=== PATIENT | female | born 1995 | race Caucasian/White ===

== ENCOUNTER 2019-11-02 23:14 | Emergency (ER) | payer SELFPAY ==
[~2019-11-02] VITALS: Ht 157.5 cm; Wt 82.0 kg
[2019-11-03] MEDS ORDERED: IBUPROFEN 600MG TABLET PO ONE (00:15)
[2019-11-03] MEDS ORDERED: HYDROCODONE/ACETAMINOPHEN 5/325MG TABLET PO ONE (01:45)
[2019-11-03 02:18] VITALS: BP 129/84
== END 2019-11-03 02:18 | disposition home or self-care (01) ==
LOC: ER 23:14
DX: M25.572 Pain in left ankle and joints of left foot (principal)
CPT/HCPCS: 73610; 99285

== ENCOUNTER 2019-11-03 13:18 | Emergency (ER) | payer OTHER ==
[~2019-11-03] VITALS: Ht 167.6 cm; Wt 84.0 kg
[2019-11-03 13:25] VITALS: BP 112/71
[2019-11-03] MEDS ORDERED: KETOROLAC 30MG/ML VIAL IM ONE (14:15)
== END 2019-11-03 15:20 | disposition home or self-care (01) ==
LOC: ER 14:34
DX: S93.492A Sprain of other ligament of left ankle, initial encounter (principal); X58.XXXA Exposure to other specified factors, initial encounter; Y93.89 Activity, other specified; Y92.89 Other specified places as the place of occurrence of the external cause; Y99.8 Other external cause status
CPT/HCPCS: 73610; 96372; 99283; J1885